=== PATIENT | female | born 1960 | race Caucasian/White ===

== ENCOUNTER 2017-11-09 06:05 | Day surgery (SDC) | payer MEDICAID ==
[~2017-11-09] VITALS: Ht 152.4 cm; Wt 66.7 kg
[~2017-11-09 06:05] MED LIST: AMLO10TA80 PO; ASPI-1159 PO; LISI-604 PO; METF850T2 PO; PIOG30TA27 PO; SIMV40TA5 PO
[2017-11-09] MEDS ORDERED: PHENYLEPHRINE HCL 10% OPHTH DROPS 5ML LEFTEYE ONE (07:25)
[2017-11-09] MEDS ORDERED: TROPICAMIDE 1% OPHTH DROPS 15ML LEFTEYE ONE (07:25)
[2017-11-09] MEDS ORDERED: CYCLOPENTOLATE HCL 1% OPHTH DROPS 2ML LEFTEYE ONE (07:25)
[2017-11-09] MEDS ORDERED: BALANCED SALT IRRIG SOLN COMB1 500ML OP SCH (07:30)
[2017-11-09] MEDS ORDERED: SODIUM CHLORIDE 0.9% 1,000 ML IV SCH (07:45)
[2017-11-09] MEDS ORDERED: HYALURONATE SODIUM 14 MG/ML 0.85ML SYRINGE IO ONE (08:56)
[2017-11-09] MEDS ORDERED: PROPOFOL 200MG/20ML VIAL IV ONE (09:08)
[2017-11-09] MEDS ORDERED: TRYPAN BLUE 0.5 ML DISP.SYRIN IO ONE (09:35)
[2017-11-09] MEDS ORDERED: LIDOCAINE HCL/PF 1% 10 MG/ML 5ML VIAL ONE (09:58)
[2017-11-09] MEDS ORDERED: PREDNISOLONE ACETATE 1% OPHTH DROPS 1ML ONE (14:30)
[2017-11-09] MEDS ORDERED: ACETYLCHOLINE CHLORIDE INTRAOCULAR SOLUTION 1:100 ELECTROLYTE DILUENT IO ONE (14:30)
[2017-11-09] MEDS ORDERED: LIDOCAINE HCL 2%/EPINEPHRINE 1:100,000 20 ML VIAL INFIL ONE (14:30)
[2017-11-09] MEDS ORDERED: TETRACAINE 0.5% OPHTH DROPS 4ML ONE (14:30)
[2017-11-09] MEDS ORDERED: BUPIVACAINE HCL/PF 0.75% (7.5MG/ML) 10ML ONE (14:30)
[2017-11-09] MEDS ORDERED: CIPROFLOXACIN 0.3% OPHTH SOLN 2.5ML ONE (14:30)
[2017-11-09] MEDS ORDERED: NEO/POLYMYX B SULF/DEXAMETH OPHTH OINT 3.5GM ONE (14:30)
[2017-11-09] MEDS ORDERED: BALANCED SALT IRRIG SOLN 15ML ONE (14:30)
== END 2017-11-09 11:00 | disposition home or self-care (01) ==
LOC: OR 06:05
PROVIDERS: ATTEND Ophthalmology
DX: E11.36 Type 2 diabetes mellitus with diabetic cataract (principal); H25.22 Age-related cataract, morgagnian type, left eye; I10 Essential (primary) hypertension; E78.00 Pure hypercholesterolemia, unspecified; E66.3 Overweight; Z79.899 Other long term (current) drug therapy; Z79.82 Long term (current) use of aspirin; Z79.84 Long term (current) use of oral hypoglycemic drugs; Z98.890 Other specified postprocedural states
CPT/HCPCS: 36415; 66984; 82962; 84132; J3490; J7030; Q9957; V2632; J2704